=== PATIENT | female | born 1960 | race Caucasian/White ===

== ENCOUNTER 2016-12-01 16:25 | Outpatient (CLI) | payer OTHER | END 2016-12-01 16:26 | disposition short-term general hospital (02) | LOC: EMS 16:25 | PROVIDERS: ATTEND Surgery | DX: R55 Syncope and collapse (principal); K92.0 Hematemesis; K92.1 Melena; R11.0 Nausea; R42 Dizziness and giddiness | CPT/HCPCS: A0425; A0427 ==

== ENCOUNTER 2019-08-24 12:43 | Outpatient (CLI) | payer BC, OTHER | END 2019-08-24 12:44 | disposition home or self-care (01) | LOC: LAB.S 12:43 → LAB 12:44 | PROVIDERS: ATTEND Naturopath | DX: R50.9 Fever, unspecified (principal); Z20.828 Contact with and (suspected) exposure to other viral communicable diseases | CPT/HCPCS: 81599 ==